=== PATIENT | male | born 1960 | race Caucasian/White ===

== ENCOUNTER 2023-09-03 09:27 | Emergency (ER) | payer MEDICAID, MEDICARE ==
[~2023-09-03] VITALS: Ht 180.3 cm; Wt 142.0 kg
[2023-09-03] MEDS: KETOROLAC TROMETH 30 MG/ML 1ML VIAL IM ONE (11:48)
[2023-09-03] MEDS ORDERED: IBUP1TAB5 PO (11:51)
[2023-09-03 11:53] VITALS: BP 110/82; PULSE 98; RESP 18; TEMP 98.2; O2SAT 98
== END 2023-09-03 11:58 | disposition home or self-care (01) ==
LOC: ER 09:27
DX: S83.92XA Sprain of unspecified site of left knee, initial encounter (principal); M17.0 Bilateral primary osteoarthritis of knee; X50.1XXA Overexertion from prolonged static or awkward postures, initial encounter; Y93.89 Activity, other specified; Y92.89 Other specified places as the place of occurrence of the external cause; Y99.8 Other external cause status
CPT/HCPCS: 73562; 96372; 99283; J1885